=== PATIENT | female | born 1985 | race Caucasian/White ===

== ENCOUNTER 2017-10-07 10:39 | Emergency (ER) | payer OTHER ==
[2017-10-07 10:53] VITALS: BP 111/75; PULSE 70; TEMP 98.2; BMI 22.1
[2017-10-07] MEDS ORDERED: IBUPROFEN 600 MG TABLET (FP) PO ONE ×2 (11:50→11:55)
--- NOTE | 2017-10-07 11:55 | PDOC ---
History of Present Illness - General Chief Complaint: Cold Symptoms Stated Complaint: EAR PROBLEM Time Seen by Provider: 10/07/17 11:34 History Source: Patient Exam Limitations: No Limitations - History of Present Illness Initial Comments: 10/07/17 14:23 CHIEF COMPLAINT: Left ear pain HISTORY OF PRESENT ILLNESS: Patient is a 32-year-old female, no significant medical history woke up today at 5 AM complaining of pain to left ear no fever. No injury. No change in hearing. 10/07/17 14:24 Severity: moderate Associated Symptoms: denies: fever/chills Past History - Past Medical History Allergies/Adverse Reactions: Allergies Allergy/AdvReac Type Severity Reaction Status Date / Time No Known Allergies Allergy Verified 10/07/17 10:49 Home Medications: Ambulatory Orders Amoxicillin - [Amoxicillin 875mg Tablet -] 875 mg PO BID #14 tab 10/07/17 COPD: No Other medical history: DENIES. - Suicide/Smoking/Psychosocial Hx Smoking History: Never smoked Drug/Substance Use Hx: No Substance Use Type: None Review of Systems - Review of Systems Constitutional: No: Symptoms Reported, Fever HEENTM: Yes: Ear Pain. No: Ear Discharge (left) Respiratory: No: Symptoms reported Cardiac (ROS): No: Symptoms Reported Integumentary: No: Symptoms Reported Hematologic/Lymphatic: No: Symptoms Reported All Other Systems: Reviewed and Negative *Physical Exam - Vital Signs Last Vital Signs Temp Pulse Resp BP Pulse Ox 98.2 F 70 19 111/75 99 10/07/17 10:51 10/07/17 10:51 10/07/17 10:51 10/07/17 10:51 10/07/17 10:51 - Physical Exam General Appearance: Yes: Appropriately Dressed. No: Apparent Distress HEENT: positive: TM Bulging, TM Erythema (left). negative: Tonsillar Exudate, Tonsillar Erythema, Nasal Congestion, Rhinorrhea, Sinus Tenderness, Hearing Decreased, Hearing Grossly Normal, Lesions Neck: negative: Tender, Tender lateral, Tender midline Respiratory/Chest: positive: Lungs Clear, Normal Breath Sounds. negative: Respiratory Distress, Accessory Muscle Use Cardiovascular: positive: Regular Rhythm, Regular Rate Lymphatic: negative: Adenopathy Integumentary: positive: Normal Color Medical Decision Making - Medical Decision Making 10/07/17 14:26 A/P: Patient with an acute otitis media will DC on amoxicillin and Motrin follow -up with ENT *DC/Admit/Observation/Transfer Diagnosis at time of Disposition: Otitis media Qualifiers: Otitis media type: unspecified Chronicity: acute Qualified Code(s): H66.90 - Otitis media, unspecified, unspecified ear - Discharge Dispostion Disposition: HOME Condition at time of disposition: Stable Admit: No - Prescriptions Prescriptions: Amoxicillin - [Amoxicillin 875mg Tablet -] 875 mg PO BID #14 tab - Referrals Referrals: Yanet Sofia [Primary Care Provider] - - Patient Instructions Printed Discharge Instructions: Middle Ear Infection Additional Instructions: Motrin as needed for pain, antibiotics as ordered recommend follow-up with ENT if symptoms persist in 3-4 days. - Post Discharge Activity Forms/Work/School Notes: Back to Work
== END 2017-10-07 12:03 | disposition home or self-care (01) ==
LOC: JERFT 10:39
DX: H66.92 Otitis media, unspecified, left ear (principal)
CPT/HCPCS: 99281-25

== ENCOUNTER 2017-11-23 19:02 | Emergency (ER) | payer OTHER ==
[2017-11-23 19:35] VITALS: BP 129/81; PULSE 66; TEMP 98.9; BMI 21.4
--- NOTE | 2017-11-23 19:37 | PDOC ---
Rapid Medical Evaluation Time Seen by Provider: 11/23/17 19:28 Medical Evaluation: Allergies Allergy/AdvReac Type Severity Reaction Status Date / Time No Known Allergies Allergy Verified 10/07/17 10:49 11/23/17 19:28 I have performed a brief in-person evaluation of this patient. The patient presents with a chief complaint of: bump on top of head, now has one on right of neck Pertinent physical exam findings: well appearing I have ordered the following: urine The patient will proceed to the ED for further evaluation. Discharge Disposition - Diagnosis Bump - Referrals - Patient Instructions - Post Discharge Activity
--- NOTE | 2017-11-23 20:17 | PDOC ---
History of Present Illness - General Chief Complaint: Pain Stated Complaint: PAIN Time Seen by Provider: 11/23/17 19:28 History Source: Patient Exam Limitations: No Limitations - History of Present Illness Initial Comments: CHIEF COMPLAINT: 32 y/o female c/o painful bump to top of head and to right side of neck. HPI: The patient noticed a bump to the top of her head a few days ago and one to the right side of her neck today. She also states she is unsure if she's . She denies trauma, f/c, n/v/d, cough, runny nose, CP, SOB, abd pain, vaginal bleeding or discharge and all other symptoms. Past History - Past Medical History Allergies/Adverse Reactions: Allergies Allergy/AdvReac Type Severity Reaction Status Date / Time No Known Allergies Allergy Verified 11/23/17 19:32 Home Medications: Ambulatory Orders NK [No Known Home Medication] 11/23/17 COPD: No Other medical history: Pt denies - Suicide/Smoking/Psychosocial Hx Smoking History: Never smoked Have you smoked in the past 12 months: No Information on smoking cessation initiated: No Hx Alcohol Use: No Drug/Substance Use Hx: No Substance Use Type: None Review of Systems - Review of Systems Able to Perform ROS?: Yes Constitutional: No: Chills, Fever, Loss of Appetite, Unexplained wgt Loss HEENTM: No: Symptoms Reported Respiratory: No: Symptoms reported Cardiac (ROS): No: Symptoms Reported ABD/GI: No: Symptoms Reported : No: Symptoms Reported Musculoskeletal: No: Symptoms Reported Integumentary: Yes: Other (Tender bump to top of head and to right side of neck) Neurological: No: Symptoms reported *Physical Exam - Vital Signs Last Vital Signs Temp Pulse Resp BP Pulse Ox 98.9 F 66 18 129/81 99 11/23/17 19:32 11/23/17 19:32 11/23/17 19:32 11/23/17 19:32 11/23/17 19:32 - Physical Exam General Appearance: Yes: Nourished, Appropriately Dressed. No: Apparent Distress HEENT: negative: EOMI, AARON, Normal ENT Inspection, Normal Voice, Symmetrical, TMs Normal, Pharynx Normal, Pale Conjunctivae, Photophobia, Scleral Icterus (R) , Scleral Icterus (L), Muffled/Hoarse voice, Pharyngeal Erythema, Tonsillar Exudate, Tonsillar Erythema, Nasal Congestion, Rhinorrhea, Sinus Tenderness, Orbits, Hearing Decreased, Hearing Grossly Normal, TM Bulging, TM Dull, TM Erythema, Lesions, [place], Excessive drooling, Thrush, Other Neck: positive: Tender, Lymphadenopathy (R) (tender posterior cervical lymphadenopathy) Respiratory/Chest: negative: Chest Tender, Lungs Clear, Normal Breath Sounds, Respiratory Distress, Accessory Muscle Use, Labored Respiration, Rapid RR, Decreased Breath Sounds, Paradoxal Breathing, Crackles, Rales, Rhonchi, Stridor , Wheezing, Hyperresonant, Dullness, Plerual Rub, Other Cardiovascular: negative: Regular Rhythm, Regular Rate, S1, S2, Edema, JVD, Murmur, Bradycardia, Tachycardia, Diastolic Murmur, Systolic Murmur, Gallop/S3, Gallop/S4, Irregularly Irregular, Irregular, Other Neurologic: positive: vibration analyst II-XII NML intact, Fully Oriented, Alert, Normal Mood/ Affect, Normal Response, Motor Strength 5/5, Finger to Nose (normal), Other ( 1cm round, cyst like structure that is TTP of right pariental scalp). negative : Facial Droop Medical Decision Making - Medical Decision Making A/P: 32 y/o female with either cysts or tender lymphadenopathy to scalp and posterior cervical chain. SHe is also here for test. Plan is as follows: 1. Hcg hcg - positive Gave patient results. Suggested tylenol for pain and f/u with PCP as soon as possible for further work up of cysts/lymphadenopathy. Also suggested f/u with [facility]. Patient instructed to return to the ER with any worsening or concerning symptoms. The patient verbalizes understanding of all instructions, has no further questions and is awaiting discharge. *DC/Admit/Observation/Transfer Diagnosis at time of Disposition: Bump, Lymphadenopathy of head and neck - Discharge Dispostion Disposition: HOME Condition at time of disposition: Good - Referrals Referrals: Yanet Sofia [Primary Care Provider] - - Patient Instructions Additional Instructions: Discharge Instructions: -The bumps on your head and neck could either be cysts or swollen lymph nodes; either way they need further work up to make sure they are benign -Your test was positive; please follow up with your [facility] as soon as possible -Please follow up with Dr. Sofia as soon as possible for further work up of your tender bumps -Return to the ER with any worsening or concerning symptoms. - Post Discharge Activity
== END 2017-11-23 20:43 | disposition home or self-care (01) ==
LOC: JERFT 19:02
DX: R59.0 Localized enlarged lymph nodes (principal)
CPT/HCPCS: 84703; 99281-25

== ENCOUNTER 2017-12-31 23:39 | Emergency (ER) | payer OTHER ==
[2018-01-01 00:11] VITALS: BP 128/62; PULSE 82; TEMP 97.6; BMI 23.0
[2018-01-01] MEDS ORDERED: diphenhydrAMINE HCL 25 MG CAPSULE (FP) PO ONE ×2 (01:21→01:25)
--- NOTE | 2018-01-01 01:26 | PDOC ---
History of Present Illness - General Chief Complaint: Rash Stated Complaint: RASH Time Seen by Provider: 01/01/18 00:58 History Source: Patient Exam Limitations: No Limitations - History of Present Illness Initial Comments: 01/01/18 01:21 This is a 32-year-old woman without significant past medical history presents emergency Department with 6 hours of rash to her trunk and upper extremities. Patient denies any shortness of breath, itchy throat, difficulty swallowing. Patient denies any change in diet, medications, soaps, shampoos, conditioners, perfumes, lotions or any other cosmetics. Past History - Past Medical History Allergies/Adverse Reactions: Allergies Allergy/AdvReac Type Severity Reaction Status Date / Time No Known Allergies Allergy Verified 01/01/18 00:03 Home Medications: Ambulatory Orders NK [No Known Home Medication] 11/23/17 COPD: No - Immunization History Immunization Up to Date: Yes - Suicide/Smoking/Psychosocial Hx Smoking History: Never smoked Have you smoked in the past 12 months: No Information on smoking cessation initiated: No Hx Alcohol Use: No Drug/Substance Use Hx: No Substance Use Type: None Review of Systems - Review of Systems Able to Perform ROS?: Yes Is the patient limited Greenlandic proficient: No Constitutional: No: Symptoms Reported HEENTM: No: Symptoms Reported Respiratory: No: Symptoms reported Cardiac (ROS): No: Symptoms Reported ABD/GI: No: Symptoms Reported : No: Symptoms Reported Musculoskeletal: No: Symptoms Reported Integumentary: Yes: See HPI Neurological: No: Symptoms reported Endocrine: No: Symptoms Reported *Physical Exam - Vital Signs Last Vital Signs Temp Pulse Resp BP Pulse Ox 97.6 F 82 20 128/62 100 01/01/18 00:04 01/01/18 00:04 01/01/18 00:04 01/01/18 00:04 01/01/18 00:04 - Physical Exam General Appearance: Yes: Appropriately Dressed. No: Apparent Distress HEENT: positive: Normal ENT Inspection Neck: positive: Trachea midline, Supple. negative: Stridor Respiratory/Chest: positive: Lungs Clear, Normal Breath Sounds. negative: Respiratory Distress, Accessory Muscle Use Cardiovascular: positive: Regular Rhythm, Regular Rate. negative: Murmur Integumentary: positive: Dry, Warm, Hives (sporadic across trunk and upper extremities) Neurologic: positive: Alert, Normal Response Medical Decision Making - Medical Decision Making 01/01/18 01:25 A/P: 32-year-old woman without significant past medical history with 6 hours of hives to trunk and upper extremities No drooling noted No oral edema noted No stridor present Lungs clear to auscultation bilaterally Hives present to trunk and upper extremities Benadryl 50 mg orally now Reassess 01/01/18 02:02 Urticaria resolved. I will discharge the patient home with instructions to take [id number] antihistamines, hydrocortisone cream and follow-up with ENT as needed for ALLERGY evaluation. *DC/Admit/Observation/Transfer Diagnosis at time of Disposition: Urticaria - Discharge Dispostion Disposition: HOME Condition at time of disposition: Fair Decision to Admit order: No - Referrals Referrals: Yanet Sofia [Primary Care Provider] - Michael Hebert MD [Staff Physician] - - Patient Instructions Additional Instructions: Rest, keep cool and dry- avoid strenuous activity or hot /humid environments You have been given a referral for Dr. Hebert of ENT for evaluation of allergy. Make an appointment for evaluation. May use Benadryl at night for antihistamine, Zyrtec/ Delilah or Claritin for daytime antihistamine use to help with itching May use [id number] hydrocortisone cream on all areas except face Try to identify cause for rash and avoid exposures Followup with PMD in one week if no resolution - Post Discharge Activity
== END 2018-01-01 02:04 | disposition home or self-care (01) ==
LOC: JER 23:39
DX: L50.9 Urticaria, unspecified (principal)
CPT/HCPCS: 99282-25

== ENCOUNTER 2018-01-06 10:04 | Day surgery (SDC) | payer OTHER ==
[2018-01-05 09:30] VITALS: BMI 23.0
[2018-01-06 10:24] LABS: BASO % 0.6 % (0-2.0); EOS % 0.7 % (0-4.5); HEMATOCRIT 38.9 % (32.4-45.2); HEMOGLOBIN 13.2 GM/dL (10.7-15.3); LYMPH % 37.1 % (8-40); MCH 28.8 pg (25.7-33.7); MCHC 33.8 g/dl (32.0-36.0); MEAN CELL VOLUME 85.1 fl (80-96); MEAN PLT VOLUME 7.7 fl (7.5-11.1); MONO % 5.7 % (3.8-10.2); NEUT % 55.9 % (42.8-82.8); PLATELET COUNT 222 K/MM3 (134-434); RBC 4.57 M/mm3 (3.60-5.2); RDW 13.7 % (11.6-15.6); WHITE BLOOD COUNT 4.2 K/mm3 (4.0-10.0)
[2018-01-06 10:51] LABS: ALBUMIN 3.8 g/dl (3.4-5.0); ANION GAP 7 (8-16); BILIRUBIN,TOTAL 0.5 mg/dL (0.2-1.0); CALCIUM 7.9 mg/dL (8.5-10.1); CHLORIDE 107 mmol/L (98-107); CO2 26 mmol/L (21-32); CREATININE 0.6 mg/dL (0.55-1.02); GLUCOSE,RANDOM 84 mg/dL (74-106); POTASSIUM 3.6 mmol/L (3.5-5.1); SGOT/AST 14 U/L (15-37); SGPT/ALT 20 U/L (12-78); SODIUM 140 mmol/L (136-145); TOT PROT 7.1 g/dl (6.4-8.2)
[2018-01-06 11:00] LABS: ALK PHOS 61 U/L (45-117); BLOOD UREA NITROGEN 11 mg/dL (7-18)
[2018-01-06] MEDS ORDERED: MIDAZOLAM HCL 2 MG/2 ML SINGLE DOSE VIAL ONE (11:44)
[2018-01-06] MEDS ORDERED: IBUPROFEN 600 MG TABLET (FP) PO PRN (12:07)
[2018-01-06] MEDS ORDERED: ACETAMINOPHEN 325 MG TABLET (FP) PO PRN (12:07)
--- NOTE | 2018-01-06 12:07 | HP ---
History & Physical Update - History History: No Change - Physical Physical: No Change - Assessment Assessment: No Change - Plan Plan: No Change (Agree with H&P from 12/30 - D&C for missed )
[2018-01-06] MEDS ORDERED: DEXAMETHASONE SOD PHOSPHATE 4 MG/1 ML VIAL ONE (12:12)
[2018-01-06] MEDS ORDERED: LIDOCAINE HCL/PF 2% SDV 5ML VIAL ONE (12:14)
[2018-01-06] MEDS ORDERED: PROPOFOL 20 ML ONE (12:14)
[2018-01-06] MEDS ORDERED: LACTATED RINGERS SOLUTION 1,000 ML IV SCH (12:15)
[2018-01-06] MEDS ORDERED: OXYTOCIN 10 UNITS/ML VIAL ONE (12:24)
[2018-01-06] MEDS ORDERED: oxyCODONE HCL 5 MG TABLET PO PRN (12:48)
[2018-01-06] MEDS ORDERED: ONDANSETRON 4 MG/2 ML VIAL IVPUSH PRN (12:48)
--- NOTE | 2018-01-06 13:17 | OP ---
Operative Note - Note: Operative Date: 01/06/18 Pre-Operative Diagnosis: missed Operation: suction d&c Post-Operative Diagnosis: Same as Pre-op Surgeon: Ludmila Nielsen Anesthesiologist/PACKAGE LIFT OPERATOR: Christiano Ogden Anesthesia: General Estimated Blood Loss (mls): 300 Operative Report Dictated: Yes
[2018-01-06] MEDS ORDERED: IBUPROFEN 800 MG/8 ML IJ IVPB ONE (13:22)
[2018-01-06 14:12] VITALS: TEMP 98.2
[2018-01-06 16:07] VITALS: BP 101/61; PULSE 67
--- NOTE | 2018-01-07 18:20 | PATH ---
Surgical Pathology Report Patient Name: JASON SEGOVIA [facility]. Rec. #: [id number] /Age/Gender: 1985 (Age: 32) / F Account: [id number] Location: [facility] SURGICAL Taken: 01/06/2018 Received: 01/06/2018 Reported: 01/07/2018 Physicians: Ludmila Nielsen M.D. Specimen(s) Received PRODUCTS OF CONCEPTION Clinical History Missed Final Diagnosis PRODUCTS OF CONCEPTION, SUCTION DILATION AND CURETTAGE: IMMATURE CHORIONIC VILLI, DECIDUA, AND GESTATIONAL ENDOMETRIUM CONSISTENT WITH PRODUCTS OF CONCEPTION. CHROMOSOMAL STUDIES ARE PENDING AND WILL BE REPORTED SEPARATELY AN ADDENDUM. Electronically Signed Kika Wong M.D. 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 Trisomy 16 is the most common autosomal trisomy associated with spontaneous abortions. COMMENT: No other chromosome abnormalities are observed. The standard cytogenetic methodology utilized in this analysis does not routinely detect subtle rearrangements or low-level mosaicism and cannot detect microdeletions. Also, it cannot detect molecular cytogenetic abnormalities (such as microdeletions and microduplications) that may be detectable by microarray analysis. See [employer] report (SPC#: [id number]) for additional details. Kika Wong M.D. Gross Description Received in formalin labeled "products of conception for genetic testing," is a 15.0 x 11.5 x 1.2 cm aggregate of red soft tissue fragments. No definite villous tissue or somatic tissue is identified. A contact center representative portion is placed in RPMI solution and sent for chromosomal analysis. Additional contact center representative sections are submitted in 3 cassettes. /01/06/201801/06/2018
--- NOTE | 2018-01-08 08:08 | OP ---
DATE OF OPERATION: 01/06/2018 PREOPERATIVE DIAGNOSIS: Missed . POSTOPERATIVE DIAGNOSIS: Missed . PROCEDURE: Suction dilatation and curettage. SURGEON: Ludmila Nielsen DO CUSTOMER SUPPORT ASSOCIATE: None. ANESTHESIA: General with LMA by Christiano Ogden MD. ESTIMATED BLOOD LOSS: 300 mL DISPOSITION: Stable to PACU. BRIEF HISTORY AND PROCEDURE: Patient is a 32-year-old female who had been seen in the office for several weeks with ultrasounds which were consistent with a missed and inappropriately rising beta hCG levels. Patient was counseled on her options in the office and elected to undergo a D&C procedure. The patient was admitted to the hospital on January 06, 2018. Consents were signed upon admission to the hospital. The patient was then taken back to the operating room. She was given general anesthesia via LMA by Dr. Ogden and placed in the dorsal supine position. A speculum was placed in the vagina. The cervix was easily visualized, and the anterior lip was grasped with a single-tooth tenaculum. The cervix was dilated to accommodate a 7 curved suction curette which was advanced to the fundus. Several passes of the suction curette were completed, and then several passes with sharp curettage were completed to remove all of the tissue. Bleeding was noted from the cervical os. Upon ultrasound examination, it appeared that the intrauterine cavity was cleared of all tissue. Several passes with the suction curette were completed at this time to ensure removal of all the tissue, and bleeding from the cervical os was diminished. All instruments were removed from the vagina. Minimal bleeding from the cervical os was noted. No bleeding from the tenaculum sites was appreciated. Sponge and instrument counts were reported to be correct. The patient tolerated the procedure well and is recovering in stable condition in the PACU after the procedure. LUDMILA NIELSEN DO /[id number]
== END 2018-01-06 15:45 | disposition home or self-care (01) ==
LOC: JASU-SURG 10:04
PROVIDERS: ATTEND Obstetrics & Gynecology
PROC: 10D17ZZ Extraction of Products of Conception, Retained, Via Natural or Artificial Opening (ICD-10-PCS; principal; 2018-01-06 12:00)
DX: O02.1 Missed abortion (principal)
CPT/HCPCS: 36415; 80053; 85025; 86850; 86900; 86901; 94760

== ENCOUNTER 2019-02-25 08:02 | Inpatient (IN) | payer OTHER ==
[2019-02-25] MEDS: ELECTROLYTE-148 SOLN 1,000 ML IV SCH (08:30)
[2019-02-25] MEDS ORDERED: BUTORPHANOL TARTRATE 1 MG/ML VIAL IVPB ONE (08:44)
[2019-02-25] MEDS ORDERED: AMPICILLIN - 2 GM in SODIUM CHLORIDE 100 ML IVPB ONE (08:44)
[2019-02-25] MEDS ORDERED: PROMETHAZINE HCL 25 MG/1 ML VIAL IVPUSH ONE (08:44)
[2019-02-25 09:12] VITALS: BMI 28.3
[2019-02-25] MEDS ORDERED: BETAMET ACET/BETAMET NA PH 30 MG/5 ML VIAL IM ONE (09:30)
--- NOTE | 2019-02-25 09:38 | HP ---
Past Medical History - Admission Chief Complaint: leaking fluid, painful contractions History of Present Illness: 34 y/o female with SIUP at 35.5 weeks gestation here for leaking fluid/ROM and painful contractions. complicated by EFW < 5%, no official diagnosis of IUGR, suspected constitutionally small baby per MFM. Dopplers all WNL. Pt also AMA. GBS unknown. History Source: Patient, Medical Record - Past Medical History Cardiovascular: No: AFIB, HTN Pulmonary: No: Bronchitis, Cancer, COPD Gastrointestinal: No: GERD, Inflamatory Bowel Disease Hepatobiliary: No: Hepatitis B, Hepatitis C ...: 7 ...Para: 1 ...Term: 1 ...: 0 ...Spon : 1 ...Induced : 4 ...Multiple Gestation: 0 ...LMP: 06/20/18 ... Weeks Gestation by Dates: 35.5 ...EDC by Dates: 03/27/19 ...EDC by Sono: 03/27/19 Heme/Onc: No: Anemia Infectious Disease: No: HIV, MRSA, STD's Psych: No: Anxiety, Bipolar, Depression - Past Surgical History Hx Myomectomy: No Hx Transabdominal Cerclage: No Additional Surgical History: D&C - Smoking History Smoking history: Never smoked Have you smoked in the past 12 months: No - Alcohol/Substance Use Hx Alcohol Use: No - Social History Usual Living Arrangement: Yes: With Spouse History of Recent Travel: No Home Medications - Allergies Allergies/Adverse Reactions: Allergies Allergy/AdvReac Type Severity Reaction Status Date / Time No Known Drug Allergies Allergy Verified 02/25/19 09:22 strawberries Allergy "hives" Uncoded 01/06/18 11:08 - Home Medications Home Medications: Ambulatory Orders Folic Acid - 1 mg PO DAILY 12/29/18 Vit,Calc76/Iron/Folic [Pnv 29-1 Tablet] 1 tab PO DAILY 12/29/18 Physical Exam - Maternity Vital Signs: Vital Signs Temperature 98.0 F 02/25/19 08:50 Pulse Rate 62 02/25/19 09:00 Respiratory Rate 18 02/25/19 09:00 Blood Pressure 107/71 02/25/19 09:00 O2 Sat by Pulse Oximetry (%) Constitutional: Yes: Well Nourished, Calm, Mild Distress (with contractions) Cardiovascular: Yes: Regular Rate and Rhythm Lungs: Clear to auscultation - Abdominal Exam/OB Number of Fetuses: Single Presentation: Vertex Contractions: Yes Regularity: Regular Intensity: Mild/Mod Category: I Accelerations: Uniform Decelerations: None - Vaginal Exam/OB Dilatation (cm): 2 Effacement (%): 50 Amniotic Membrane Status: Ruptured Presentation: Vertex/Position Station: -2 - Physical Exam Psychiatric: Yes: Alert, Oriented Hemorrhage Risk Assessment - Risk Factors Medium Risk Factors: Yes: None High Risk Factors: Yes: None Risk Score: 1 Risk Level: Medium Risk Problem List - Problems (1) premature rupture of membranes (PPROM) with onset of labor within 24 hours of rupture in third trimester, antepartum Code(s): O42.013 - PRETRM ZAYNAB ROM, ONSET LABOR W/N 24 HOURS OF RUPT, THIRD TRI (2) IUGR (intrauterine growth restriction) in prior , Code(s): O09.299 - SUPRVSN OF PREG W POOR REPRODCTV OR OBSTET HISTORY, UNSP TRI Assessment/Plan 34 y/o with SIUP at 35.5 weeks, PPROm, labor betamethasone given ampicillin for GBS unknown expectant management, anticipate neonatology aware
[2019-02-25] MEDS ORDERED: PROMETHAZINE HCL 25 MG/1 ML VIAL ONE (09:52)
[2019-02-25] MEDS ORDERED: BUTORPHANOL TARTRATE 1 MG/ML VIAL ONE ×2 (09:52)
[2019-02-25 10:15] LABS: BASO % 0.5 % (0-2.0); EOS % 0.4 % (0-4.5); HEMOGLOBIN 12.7 GM/dL (10.7-15.3); LYMPH % 27.7 % (8-40); MCH 28.4 pg (25.7-33.7); MCHC 34.2 g/dl (32.0-36.0); MEAN CELL VOLUME 83.1 fl (80-96); MEAN PLT VOLUME 8.8 fl (7.5-11.1); MONO % 4.7 % (3.8-10.2); NEUT % 66.7 % (42.8-82.8); RBC 4.45 M/mm3 (3.60-5.2); RDW 14.3 % (11.6-15.6)
[2019-02-25 10:37] LABS: PLATELET COUNT 191 K/MM3 (134-434)
[2019-02-25 10:47] LABS: ALBUMIN 2.6 g/dl (3.4-5.0); BILIRUBIN,TOTAL 0.3 mg/dL (0.2-1); BLOOD UREA NITROGEN 8.7 mg/dL (7-18); CALCIUM 7.9 mg/dL (8.5-10.1); CREATININE 0.5 mg/dL (0.55-1.3); POTASSIUM 3.6 mmol/L (3.5-5.1); TOT PROT 6.5 g/dl (6.4-8.2)
[2019-02-25] MEDS ORDERED: FENTANYL/BUPIVACAINE/NS/PF - PCEA - 50 ML DISP.SYRIN EP ONE (11:46)
[2019-02-25] MEDS ORDERED: AMPICILLIN SODIUM 1 GM VIAL ONE (11:46)
[2019-02-25 11:59] LABS: INR 0.92 (0.83-1.09); PROTHROMBIN TIME (PATIENT) 10.8 SEC (9.7-13.0)
[2019-02-25 12:02] LABS: ACTIVATED PTT 32.9 SECONDS (25.2-36.5)
[2019-02-25] MEDS ORDERED: LIDOCAINE HCL 1% PRESERVATIVE FREE - 30ML VIAL ONE (12:11)
[2019-02-25] MEDS: OXYTOCIN 20 UNITS in 0.9% NS 20 UNIT/1,000 ML INFUS.BAG IV SCH (12:15)
[2019-02-25] MEDS ORDERED: WITCH HAZEL 50% (TUCKS) 40 PAD/JAR PAD TP PRN (12:27)
[2019-02-25] MEDS ORDERED: BENZOCAINE 20% 57 GM BOTTLE TP PRN (12:27)
[2019-02-25] MEDS ORDERED: BENZOCAINE 28 GM HEMORRHOIDAL OINTMENT TP PRN (12:27)
[2019-02-25] MEDS ORDERED: BISACODYL 10 MG SUPP.RECT RC PRN (12:27)
[2019-02-25] MEDS ORDERED: IBUPROFEN 600 MG TABLET (FP) PO PRN (12:27)
[2019-02-25] MEDS ORDERED: METHYLERGONOVINE MALEATE 0.2 MG/1 ML AMP IM PRN (12:27)
--- NOTE | 2019-02-25 12:27 | PN ---
Delivery - Delivery Vaginal Delivery: No Problems Type of Anesthesia: Local Episiotomy/Laceration: Periurethral Extnsion/lac (right periurethral) EBL (cc): 250 Delivery, Single - Stages of Labor Date of Delivery: 02/25/19 Time of Delivery: 12:07 Date Placenta Delivered: 02/25/19 Time Placenta Delivered: 12:12 Placenta: Yes: Spontaneous - Condition of Phlebotomy Tech/Bank Vault Clerk Present: No Infant Gender: Male Position: Right, OA - 1 Minute Total Score: 8 5 Minutes Total Score: 8 - [place] Feeding Plan Initial Plan: Elected not to breastfeed exclusively throughout hospitalization Remarks - Remarks Remarks: 34 y/o s/p normal across intact perineum from CELSO position anterior shoulder (left) delivered with ease along with remainder of loose nuchal cord noted X 1, delivered through cord 3VC noted, placenta delivered in tact and sponteneously right periurethral lac repaired with 3-0 vicryl in two interrupted sutures no perineal lac ebl 250 mom stable baby to special care nursery
[2019-02-25] MEDS ORDERED: AMPICILLIN - 1 GM in SODIUM CHLORIDE 100 ML IVPB SCH (12:44)
[2019-02-25] MEDS ORDERED: ACETAMINOPHEN 325 MG TABLET (FP) PO PRN (13:15)
--- NOTE | 2019-02-26 06:14 | PN ---
Post Progress Note - Subjective Subjective: Doing well, no complaints. OOB, tolerating diet, ambulating, voiding, passing flatus. VB/lochia rubra moderate but reducing Post Day: 1 Type of Delivery: Vital Signs: Vital Signs Temperature 98.0 F 02/26/19 05:38 Pulse Rate 61 02/26/19 05:38 Respiratory Rate 20 02/26/19 05:38 Blood Pressure 102/64 02/26/19 05:38 O2 Sat by Pulse Oximetry (%) 100 02/25/19 13:05 Uterus: Yes: Fundus Firm, Fundus below umbilicus Lochia: Yes: Rubra Lochia, amount: Small Extremities: Yes: Calves non-tender. No: Edema Perineum: Yes: Intact, Laceration (right labial/periurethral lac well approx/ healing well) Activity: Ambulating - Labs Labs: CBC WBC 5.0 K/mm3 (4.0-10.0) 02/25/19 09:20 RBC 4.45 M/mm3 (3.60-5.2) 02/25/19 09:20 Hgb 12.7 GM/dL (10.7-15.3) 02/25/19 09:20 Hct 37.0 % (32.4-45.2) 02/25/19 09:20 MCV 83.1 fl (80-96) 02/25/19 09:20 MCH 28.4 pg (25.7-33.7) 02/25/19 09:20 MCHC 34.2 g/dl (32.0-36.0) 02/25/19 09:20 RDW 14.3 % (11.6-15.6) 02/25/19 09:20 Plt Count 191 K/MM3 (134-434) 02/25/19 09:20 MPV 8.8 fl (7.5-11.1) D 02/25/19 09:20 Absolute Neuts (auto) 3.3 K/mm3 (1.5-8.0) 02/25/19 09:20 Neutrophils % 66.7 % (42.8-82.8) 02/25/19 09:20 Lymphocytes % 27.7 % (8-40) D 02/25/19 09:20 Monocytes % 4.7 % (3.8-10.2) 02/25/19 09:20 Eosinophils % 0.4 % (0-4.5) 02/25/19 09:20 Basophils % 0.5 % (0-2.0) 02/25/19 09:20 Nucleated RBC % 0 % (0-0) 02/25/19 09:20 Problem List - Problems (1) premature rupture of membranes (PPROM) with onset of labor within 24 hours of rupture in third trimester, antepartum Code(s): O42.013 - PRETRM ZAYNAB ROM, ONSET LABOR W/N 24 HOURS OF RUPT, THIRD TRI (2) IUGR (intrauterine growth restriction) in prior , Code(s): O09.299 - SUPRVSN OF PREG W POOR REPRODCTV OR OBSTET HISTORY, UNSP TRI (3) Normal vaginal delivery Code(s): O80 - ENCOUNTER FOR FULL-TERM UNCOMPLICATED DELIVERY Assessment/Plan 34 y/o PPD#1 s/p normal regular diet ambulation await a.m. CBC routine care
[2019-02-26 06:42] LABS: BASO % 0.1 % (0-2.0); HEMATOCRIT 35.5 % (32.4-45.2); LYMPH % 14.5 % (8-40); MCH 28.5 pg (25.7-33.7); MCHC 33.8 g/dl (32.0-36.0); MEAN CELL VOLUME 84.3 fl (80-96); MONO % 4.5 % (3.8-10.2); NEUT % 80.9 % (42.8-82.8); PLATELET COUNT 203 K/MM3 (134-434); RBC 4.21 M/mm3 (3.60-5.2); RDW 14.8 % (11.6-15.6); WHITE BLOOD COUNT 12.1 K/mm3 (4.0-10.0)
[2019-02-26] MEDS: ELECTROLYTE-148 SOLN 1,000 ML IV SCH (09:34)
[2019-02-26] MEDS: PRENATAL VITAMINS W/ FOLIC ACID TABLET (FP) PO SCH (10:09)
[2019-02-26] MEDS: OXYTOCIN 20 UNITS in 0.9% NS 20 UNIT/1,000 ML INFUS.BAG IV SCH (13:41)
[2019-02-26] MEDS ORDERED: DIPHTH,PERTUSS(ACELL),TET 0.5 ML DISP.SYRIN IM ONE (14:45)
[2019-02-26] MEDS ORDERED: SENNOSIDES/DOCUSATE COMBO (SENNA PLUS) TABLET (UD) PO PRN (22:00)
[2019-02-27 08:02] VITALS: BP 113/70; PULSE 62; TEMP 98.1
--- NOTE | 2019-02-27 08:53 | DS ---
Physical Exam-[employer] Vital Signs: Vital Signs Temperature 98.1 F 02/27/19 07:20 Pulse Rate 62 02/27/19 07:20 Respiratory Rate 20 02/27/19 07:20 Blood Pressure 113/70 02/27/19 07:20 O2 Sat by Pulse Oximetry (%) 100 02/25/19 13:05 Constitutional: Yes: Well Nourished, No Distress Eyes: Yes: Conjunctiva Clear Neck: Yes: Supple Respiratory: Yes: Regular Gastrointestinal: Yes: Normal Bowel Sounds ....Post : Yes: Uterus firm Neurological: Yes: Alert, Oriented Psychiatric: Yes: Alert, Oriented Labs: CBC, BMP 02/26/19 06:04 02/25/19 09:20 Delivery - Delivery Vaginal Delivery: No Problems Type of Anesthesia: Local Episiotomy/Laceration: Periurethral Extnsion/lac (right periurethral) EBL (cc): 250 Delivery, Single - Stages of Labor Date 1st Stage Initiatied: 02/25/19 Time 1st Stage Initiated: 08:00 Date 2nd Stage Initiated: 02/25/19 Time 2nd Stage Initiated: 12:00 Date of Delivery: 02/25/19 Time of Delivery: 12:07 Date Placenta Delivered: 02/25/19 Time Placenta Delivered: 12:12 Placenta: Yes: Spontaneous - Condition of Infant 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 Gender: Male Weight: 5 lb 2 oz Position: Right, OA Total Hours ROM (Hrs/Mins): 4h27m - 1 Minute Total Score: 8 5 Minutes Total Score: 8 - [place] Feeding Plan Initial Plan: Elected not to breastfeed exclusively throughout hospitalization Discharge Summary Reason For Visit: LABOR ADMIT Current Active Problems IUGR (intrauterine growth restriction) in prior , (Acute) Normal vaginal delivery (Acute) premature rupture of membranes (PPROM) with onset of labor within 24 hours of rupture in third trimester, antepartum (Acute) Hospital Course: Pt admitted on 02/25 with Spontaneous rupture of membranes and in labor. She was 35.5 weeks. She received one dose of betamethasone and then underwent a normal that same date which was uncomplicated. Mom had an uncomplicated post course and was discharged on post day 2. Condition: Good - Instructions Diet, Activity, Other Instructions: Physical activity Resume your normal everyday activity as tolerated no heavy lifting or exercise until seen by your surgeon. You may walk unlimited amounts and climb stairs. You may resume driving the car when you feel safe and comfortable behind the wheel. No sexual activity as instructed. Wound care You may shower daily, no soaking in tubs/baths/pools for 6 weeks or until cleared by your doctor. Diet There are no dietary restrictions. Eat healthy, high-fiber foods. Drink 6 to 8 glasses of liquid each day. This will assist in keeping your bowels regular. Pain management You may take Tylenol or acetaminophen or Ibuprofen as needed for pain. Call MD for any of the following: Severe pain not relieved by medication Fever of 101 or higher Excessive bleeding or drainage on dressing Inability to urinate Call Dr. Nielsen and make appt. to be seen in 4 to 6 wks. Disposition: HOME - Home Medications Comprehensive Discharge Medication List: Ambulatory Orders Folic Acid - 1 mg PO DAILY 12/29/18 Vit,Calc76/Iron/Folic [Pnv 29-1 Tablet] 1 tab PO DAILY 12/29/18 Ibuprofen [Motrin -] 600 mg PO QID PRN #28 tablet 02/26/19
[2019-02-27] MEDS: PRENATAL VITAMINS W/ FOLIC ACID TABLET (FP) PO SCH (09:15)
== END 2019-02-27 14:55 | disposition home or self-care (01) | DRG 560 ==
LOC: JLDR 08:02 → J3W 15:50
PROVIDERS: ADMIT Obstetrics & Gynecology; ATTEND Obstetrics & Gynecology
PROC: 10E0XZZ Delivery of Products of Conception, External Approach (ICD-10-PCS; principal; 2019-02-25)
PROC: 0UQMXZZ Repair Vulva, External Approach (ICD-10-PCS; 2019-02-25)
DX: O42.02 Full-term premature rupture of membranes, onset of labor within 24 hours of rupture (principal); O36.5930 Maternal care for other known or suspected poor fetal growth, third trimester, not applicable or unspecified; O71.82 Other specified trauma to perineum and vulva; Z3A.35 35 weeks gestation of pregnancy; Z37.0 Single live birth
CPT/HCPCS: 36415; 59409; 80053; 85025; 85610; 85730; 86593; 86850; 86900; 86901; 87389; 90715; 96372

== ENCOUNTER 2021-05-11 15:13 | Emergency (ER) | payer OTHER ==
[2021-05-11 15:17] VITALS: BMI 23.9
[2021-05-11] MEDS ORDERED: SODIUM CHLORIDE 0.9% 500 ML INFUS.BAG IV ONE (15:42)
[2021-05-11] MEDS ORDERED: METOCLOPRAMIDE HCL INJECTION 10 MG/2 ML VIAL IVPB ONE (15:42)
[2021-05-11] MEDS ORDERED: MECLIZINE HCL 25 MG TABLET (FP) PO ONE (15:42)
[2021-05-11] MEDS ORDERED: MECLIZINE HCL 12.5 MG TABLET ONE (16:09)
[2021-05-11] MEDS ORDERED: METOCLOPRAMIDE HCL INJECTION 10 MG/2 ML VIAL ONE (16:09)
[2021-05-11 16:31] LABS: BASO % 0.6 % (0-2.0); EOS % 0.5 % (0-4.5); HEMATOCRIT 37.4 % (32.4-45.2); HEMOGLOBIN 12.7 GM/dL (10.7-15.3); LYMPH % 23.2 % (8-40); MCH 28.7 pg (25.7-33.7); MEAN CELL VOLUME 84.6 fl (80-96); MEAN PLT VOLUME 8.3 fl (7.5-11.1); MONO % 4.9 % (3.8-10.2); NEUT % 70.8 % (42.8-82.8); PLATELET COUNT 203 10^3/uL (134-434); RBC 4.42 M/mm3 (3.60-5.2); RDW 13.1 % (11.6-15.6); WHITE BLOOD COUNT 6.5 K/mm3 (4.0-10.0)
[2021-05-11 16:44] LABS: CHLORIDE 106 mmol/L (98-107); SODIUM 139 mmol/L (136-145)
[2021-05-11 16:46] LABS: ALBUMIN 3.8 g/dl (3.4-5.0); ANION GAP 6 MMOL/L (8-16); BLOOD UREA NITROGEN 14.9 mg/dL (7-18); CALCIUM 8.6 mg/dL (8.5-10.1); CO2 27 mmol/L (21-32); MAGNESIUM 2.2 mg/dL (1.8-2.4)
[2021-05-11 16:47] LABS: GLUCOSE,RANDOM 105 mg/dL (74-106)
[2021-05-11 16:50] LABS: CREATININE 0.7 mg/dL (0.55-1.3); SGOT/AST 27 U/L (15-37); SGPT/ALT 28 U/L (13-61)
[2021-05-11 16:51] LABS: BILIRUBIN,TOTAL 0.5 mg/dL (0.2-1); TOT PROT 7.4 g/dl (6.4-8.2)
[2021-05-11 16:52] LABS: ALK PHOS 69 U/L (45-117)
[2021-05-11 18:09] VITALS: BP 121/83; PULSE 60; TEMP 98.3
== END 2021-05-11 18:20 | disposition home or self-care (01) ==
LOC: JER 15:13
PROC: 3E033GC Introduction of Other Therapeutic Substance into Peripheral Vein, Percutaneous Approach (ICD-10-PCS; principal; 2021-05-11)
DX: R42 Dizziness and giddiness (principal); M54.2 Cervicalgia
CPT/HCPCS: 36415; 70450-TC; 80053; 82550; 83735; 84484; 84703; 85025; 93005; 93010; 96374; 99285-25

== ENCOUNTER 2021-11-28 09:05 | Emergency (ER) | payer OTHER ==
[2021-11-28 09:16] VITALS: BMI 23.9
[2021-11-28] MEDS ORDERED: KETOROLAC TROMETHAMINE 30 MG/1 ML VIAL IM ONE (09:36)
[2021-11-28] MEDS ORDERED: DEXAMETHASONE SOD PHOSPHATE 10 MG/1 ML VIAL IM ONE (09:36)
[2021-11-28] MEDS ORDERED: guaiFENesin 200 MG/10 ML 10 ML UNIT-DOSE CUPS PO ONE (09:41)
[2021-11-28] MEDS ORDERED: guaiFENesin/D-METHORPHAN HB 10 ML UNIT-DOSE CUPS ONE (09:50)
[2021-11-28] MEDS ORDERED: DEXAMETHASONE SOD PHOSPHATE 10 MG/1 ML VIAL ONE (09:50)
[2021-11-28] MEDS ORDERED: KETOROLAC TROMETHAMINE 30 MG/1 ML VIAL ONE (09:50)
[2021-11-28 10:56] VITALS: BP 126/83; PULSE 60; TEMP 98.7
== END 2021-11-28 10:57 | disposition home or self-care (01) ==
LOC: JER 09:05
PROC: 3E023GC Introduction of Other Therapeutic Substance into Muscle, Percutaneous Approach (ICD-10-PCS; principal; 2021-11-28)
DX: R07.0 Pain in throat (principal)
CPT/HCPCS: 71046-TC-FY; 87070; 87651; 87804; 99284-25; C9803-CS; J1100; U0003; U0005